=== PATIENT | female | born 1995 | race Caucasian/White ===

== ENCOUNTER 2020-08-04 07:33 | Inpatient (IN) | payer OTHER, MEDICAID, SELFPAY ==
[2020-08-04] VITALS (58 sets, daily range): BP systolic 93–161; BP diastolic 53–104; PULSE 66–122; RESP 18; TEMP 35.6–37.2; O2SAT 95–100; BMI 23.5
--- NOTE | 2020-08-04 08:12 | ANES.PREANE2 ---
Pre-Anesthetic Assessment Pre-Anesthetic Assessment: Height/Weight: Pulse BP 112 H 137/89 08/04/20 07:53 08/04/20 07:53 Was Beta Aditi taken within 24 hours: N/A Was Clonidine taken within 24 hours: N/A Social: Social History: No alcohol and No tobacco Exam: Pre-Anes Outpt Exam: alert, oriented x 3, clear to auscultation bilaterally and regular rate & rhythm Airway: Submandibular: WNL Cervical ROM: WNL MP: 2 Dentition: Full History/ROS: No significant history except as noted Anesthetic Plan: ASA status: 2 Anesthesia: Regional (specify below) (Labor epidural) Risk of > 500 ml blood loss (7ml/kg in children): No Data Anesthesia Cardiac Studies: No Data to Display
[2020-08-04] MEDS: dextrose 5%-lactated ringers 1,000 ML 125 ML IV ×2 (08:51→18:08)
[2020-08-04 08:52] LABS: Basophils % 0.3 %; Eosinophils # 0.1 10^3/uL (0.0-0.8); Eosinophils % 0.7 %; Hemoglobin 13.7 g/dL (11.5-15.3); Lymphocytes # 1.6 10^3/uL (0.8-4.8); Lymphocytes % 15.1 %; Mean Corpuscular HGB Conc 34.3 g/dL (30.0-36.0); Mean Corpuscular Hemoglobin 32.6 pg (28.0-34.0); Mean Corpuscular Volume 95.2 fL (81-99); Monocytes # 0.4 10^3/uL (0.2-0.9); Monocytes % 3.3 %; Neutrophils % 79.9 %; Nucleated Red Blood Cells % 0 %; Platelet Count 208 10^3/cmm (130-400); Red Cell Distribution Width 12.1 % (12.1-15.1); White Blood Count 10.8 10^3/uL (4.0-10.0)
[2020-08-04] MEDS: oxytocin 30 UNIT/500 ML BAG IV (08:52)
[2020-08-04] MEDS: fentaNYL 50 mcg/mL INJ 2mL IVP (14:59)
[2020-08-04] MEDS: lactated ringers 1,000 ML 999 ML IV (15:30)
[2020-08-04] MEDS: ondansetron 2 mg/ML SDV 2 mL 4 MG IVP (16:38)
--- NOTE | 2020-08-04 16:43 | ANES.PROC ---
Anesthesia Procedures Procedure/Date: 08/04/20 Labor Epidural Epidural: Time Out Performed: Yes Consents Signed: Procedure Consent Consent: requested by attending/covering physician Lumbar Level: L3-L4 Epidural position: sitting Epidural procedure: sterile prep of area, 1% lidocaine to numb the area, negative for paresthesia passed, test dose given, 1.5% xylocaine 1:200k epi, 0.2% Ropivacaine bolus ml (5 ml), no systemic response, sterile dressing applied, L.U.D. no apparent complications and 0.2% Ropiavacaine @ mls/hr (13) Additional Comments: MINE at 7 cm catheter threaded to 13 cm 100 mcg fentanyl given 1635, 4 ml 2% lidocaine @ 1642, will continue to monitor patients comfort level.
--- NOTE | 2020-08-04 18:59 | PM.DELIVERY ---
Delivery Note: Date of delivery: August 04, 2020 Pre-Delivery Course: This is a 24-year-old G2, P0 at 40 weeks 3 days gestation who presented for postdate induction. The patient had routine care at [facility]. There were no complications during the . Her labs were unremarkable. She was GBS negative. Delivery: Her cervix was favorable for induction so she was started on Pitocin. She underwent artificial rupture of membranes with clear fluid. Her labor progressed well and she received an epidural for pain management. She had a normal spontaneous vaginal delivery of a viable female weight 3240 g, 7 pounds 2 ounces, Apgars 8 and 10 over an intact perineum. The infant was suctioned at delivery and placed on the mother's chest. The cord was clamped and cut. The placenta was delivered grossly intact and normal to inspection. There was a second-degree right labial laceration through and through. This was sutured using 3-0 chromic. Estimated blood loss 150 mL. Mother and were doing well after delivery Coding Level of Care Code Acute Adaptive Physical Educator for Chg Jessenia
[2020-08-04] MEDS: lidocaine 2% INJ 20 mL INJECTION (19:00)
[2020-08-04] MEDS: ibuprofen 800 mg tablet PO (20:43)
[2020-08-04] MEDS: benzocaine-menthol 78 gm Canister 1 SPRAY TOPICAL (20:43)
[2020-08-04] MEDS: lanolin oint 7 gm 1 APPLIC TOPICAL (20:43)
[2020-08-05] VITALS (7 sets, daily range): BP systolic 103–128; BP diastolic 58–78; PULSE 72–93; RESP 16–17; TEMP 36.4–36.6
[2020-08-05 05:53] LABS: Hematocrit 36.5 % (37.0-47.0); Hemoglobin 12.5 g/dL (11.5-15.3); Mean Corpuscular HGB Conc 34.2 g/dL (30.0-36.0); Mean Corpuscular Hemoglobin 32.9 pg (28.0-34.0); Mean Corpuscular Volume 96.1 fL (81-99); Mean Platelet Volume 10.9 fL (7.4-10.4); Platelet Count 189 10^3/cmm (130-400); Red Cell Distribution Width 12.1 % (12.1-15.1); White Blood Count 17.9 10^3/uL (4.0-10.0)
[2020-08-05] MEDS: ibuprofen 800 mg tablet PO ×2 (09:15→14:23)
[2020-08-05] MEDS: docusate sodium 100 mg Capsule PO ×2 (09:16→18:09)
[2020-08-05] MEDS: prenatal vitamin Capsule 1 CAP PO (09:16)
[2020-08-05] MEDS: acetaminophen 500 mg Tablet 1000 MG PO (12:14)
--- NOTE | 2020-08-05 13:02 | P.DS_ITS ---
Discharge Providers Date of Admission: 08/04/20 07:33 Date of Discharge: August 05, 2020 Attending Provider at Admission: Isatu Kimble MD Attending Provider at Discharge: Isatu Kimble MD Primary Care Provider: DOMINIK Beal Diagnoses at Discharge Discharge Diagnosis (1) Normal spontaneous vaginal delivery: Status: Acute Reason for Visit Reason for Visit: Induction Hospital Course Hospital Course This is a 24-year-old G2 now P1 who was admitted for postdate induction. She had a normal spontaneous vaginal delivery of a viable female . On day #1 she was doing well. She was ambulating, tolerating a regular diet, had average vaginal bleeding, was breast-feeding well and was comfortable with discharge home. Physical Exam Narrative: EXAM NARRATIVE: She was alert and oriented sitting up in bed breast-feeding. Fundus was firm, nontender and U- 3. She had no calf tenderness and no edema. Urinary Catheter Management^: Lujan: Cath Placed During This Visit: yes, but has since been removed by the nurse Reason for Continuing Indwelling Catheter: Accurate Measurement of Urinary Output in Critically Ill Patients Urinary Catheter Date of Insertion: 08/04/20 Urinary Catheter Time of Insertion: 17:30 Date Urinary Catheter Removed: 08/04/20 Time Urinary Catheter Discontinued: 18:02 Discharge Data Data Completed and Pending: Labs from last 24 hours 08/05/20 05:45 WBC 17.9 H RBC 3.80 L Hgb 12.5 Hct 36.5 L MCV 96.1 MCH 32.9 MCHC 34.2 RDW 12.1 Plt Count 189 MPV 10.9 H Vitals: Last Vital Signs Temp 97.9 F 08/05/20 11:40 Pulse 93 08/05/20 11:40 Resp 17 08/05/20 01:20 BP 128/74 08/05/20 11:40 Pulse Ox 99 08/04/20 16:33 Discharge Plan Discharge Patient Disposition: Home Condition: Stable Prescriptions: No Action No Known Home Medications RF: 0 Discharge Orders: Discharge Order (Routine); Ordered 08/05/20 Ordered By: Isatu Kimble Referrals: Isatu Kimble MD [Physician] - 1 month Discharge Diet: Usual diet Discharge Activity: Limit activity as instructed Patient Instructions: Depression (GEN), Pre-eclampsia and Eclampsia (DC), Bleeding (DC), OB Discharge Report, OB Food/Drug Interaction Guide, OB Care at Home, Opioid Safety, OB Home Care, OB [facility] Discharge Attestations Time Spent in Discharge Care*: less than 30 min Quality Metrics Clinical Quality Measures During this hospital stay, did patient experience: None Coding Level of Care Code Acute Chg FW DC note Diagnoses Normal spontaneous vaginal delivery O80
== END 2020-08-05 18:50 | disposition home or self-care (01) | DRG 807 ==
LOC: OPOB 07:36 → OBGYN 07:44
PROVIDERS: Admitting Provider Family Medicine; PCP Nurse Practitioner; Visit Provider Family Medicine
DX: O48.0 Post-term pregnancy (principal); Z37.0 Single live birth; O70.1 Second degree perineal laceration during delivery; Z3A.40 40 weeks gestation of pregnancy
CPT/HCPCS: 36415; 59409; 85025; 85027; J2405; J2795; J3010